=== PATIENT | male | born 1985 | race Caucasian/White ===

== ENCOUNTER 2019-01-18 11:13 | Outpatient (CLI) | payer MEDICAID ==
[2019-01-18 11:31] LABS: BASOPHILS # (AUTO) 0.2 10^3/uL (0.0-0.1); BASOPHILS % (AUTO) 1.7 %; EOSINOPHILS # (AUTO) 0.7 10^3/uL (0.0-0.7); EOSINOPHILS % (AUTO) 6.6 %; HGB - HEMOGLOBIN 14.6 g/dL (14.0-18.0); LYMPHOCYTES # (AUTO) 3.2 10^3/uL (1.5-3.5); LYMPHOCYTES % (AUTO) 30.5 %; MEAN CORPUSCULAR HEMOGLOBIN 30.7 pg (27.0-31.0); MEAN CORPUSCULAR HGB CONC 33.9 g/dL (32.0-36.0); MEAN CORPUSCULAR VOLUME 90.6 fL (80.0-94.0); MEAN PLATELET VOLUME 7.8 fL (7.4-11.4); MONOCYTES # (AUTO) 0.7 10^3/uL (0.0-1.0); NEUTROPHILS # (AUTO) 5.7 10^3/uL (1.5-6.6); NEUTROPHILS % (AUTO) 54.2 %; PLT - PLATELET COUNT 264 10^3/uL (130-450); RED BLOOD COUNT 4.76 10^6/uL (4.70-6.10); RED CELL DISTRIBUTION WIDTH 13.8 % (12.0-15.0); WHITE BLOOD COUNT 10.4 x10^3/uL (4.8-10.8)
[2019-01-18 11:39] LABS: ALBUMIN 4.3 g/dL (3.2-5.5); ALBUMIN/GLOBULIN RATIO 1.3 (1.0-2.2); BILIRUBIN,TOTAL 0.6 mg/dL (0.2-1.0); CALCIUM 9.2 mg/dL (8.5-10.3); TOTAL PROTEIN 7.6 g/dL (6.7-8.2)
== END 2019-01-18 11:14 | disposition home or self-care (01) ==
LOC: LAB 11:13
PROVIDERS: ATTEND Internal Medicine Gastroenterology
DX: K92.1 Melena (principal); R19.7 Diarrhea, unspecified; R10.13 Epigastric pain; K21.9 Gastro-esophageal reflux disease without esophagitis
CPT/HCPCS: 36415; 80053; 85025

== ENCOUNTER 2019-01-27 17:14 | Outpatient (CLI) | payer MEDICAID ==
--- NOTE | 2019-01-28 14:12 | Ultrasound Report ---
Reason: DIARRHEA,BLOODY,ABDOMINAL PAIN,EPIGASTRIC,GERD Procedure Date: 01/27/2019 Accession Number: [id number] / [id number] Procedure: US - Abdomen Limited CPT Code: FULL RESULT: EXAM: ABDOMEN ULTRASOUND LIMITED, RUQ EXAM DATE: 01/27/2019 05:44 PM. CLINICAL HISTORY: Diarrhea, bloody, abdominal pain, epigastric, GERD. COMPARISON: None. TECHNIQUE: Real-time scanning was performed with static images obtained. FINDINGS: Liver: Normal in size and echotexture. 18.2 cm. Main portal vein flow: Hepatopetal. Gallbladder: Contracted gallbladder noted. No stones, wall thickening, or sonographic Rivera's sign. Biliary System: CBD measures 3 mm. No intrahepatic or extrahepatic biliary dilation. Right kidney: 9.6 cm. No hydronephrosis. Other: Study mildly limited due to bowel gas. IMPRESSION: 1. Contracted gallbladder without sonographic findings concerning for acute cholecystitis or cholelithiasis. 2. Normal common bile duct. 3. No liver mass or intrahepatic bile duct dilation. RADIA
== END 2019-01-27 17:15 | disposition home or self-care (01) ==
LOC: DI 17:14
PROVIDERS: ATTEND Internal Medicine Gastroenterology
DX: R19.7 Diarrhea, unspecified (principal); R10.13 Epigastric pain; K21.9 Gastro-esophageal reflux disease without esophagitis
CPT/HCPCS: 76705

== ENCOUNTER 2019-03-02 07:27 | Day surgery (SDC) | payer MEDICAID ==
[2019-03-02] MEDS ORDERED: LACTATED RINGERS 1,000 ML IV ONE ×2 (07:31→09:21)
[2019-03-02] MEDS ORDERED: LIDO GARGLE 30 ML BOTTLE ONE (08:02)
[2019-03-02] MEDS ORDERED: MIDAZOLAM 2 MG/2 ML VIAL IVP ONE (09:03)
[2019-03-02] MEDS ORDERED: fentaNYL 100 MCG/2 ML VIAL IVP ONE (09:03)
[2019-03-02] MEDS ORDERED: fentaNYL 250 MCG/5 ML VIAL IVP ONE (09:03)
[2019-03-02] MEDS ORDERED: LIDO GARGLE 30 ML BOTTLE PO ONE (09:07)
[2019-03-02 10:29] VITALS: BP 104/65
--- NOTE | 2019-03-07 08:28 | HISTORY & PHYSICAL EXAMINATION ---
Chief Complaint - Chief Complaint Chief Complaint: Late entry for 03/02/19: abd pain, bloody diarrhea Abdominal Pain HPI - Admitted From Admitted from: Other (outpatient) - History Obtained From History obtained from: Patient Exam limitations: No limitations - History of Present Illness Severity at the worst: Moderate Context-Pain started w/: Other (unrelated) Timing: Intermittent Duration: Hours: (1-2) Improved with: Nothing Worsened by: Nothing Associated symptoms: Nausea (also c/o bleeding from hemorrhoids and intermittent bloody diarrhea for several months; c/o frequent heartburn but no dysphagia) PMH/PSH - Past Medical History Cardiovascular: positive: None Respiratory: positive: Sleep apnea Endocrine/Autoimmune: positive: None GI: positive: GERD : positive: None HEENT: positive: None Psych: positive: Depression Musculoskeletal: positive: None Derm: positive: None MRSA Hx?: No Social & Family Hx - Living Situation Living Arrangement: At home Living Situation: With family - Social History Does the pt smoke?: Yes Smoking Status: Current every day smoker Does the pt drink ETOH?: No Does the pt have substance abuse?: No Substance Use and Type: Marijuana - Family History Family History Comment/Other: great uncle with colon cancer Meds/Allgy - Home Medications Home Medications: Ambulatory Orders Medication Instructions Recorded Confirmed No Known Home Medications 03/01/19 03/01/19 - Allergies Allergies/Adverse Reactions: Allergies Allergy/AdvReac Type Severity Reaction Status Date / Time No Known Drug Allergies Allergy Verified 03/01/19 14:30 Review of Systems - Constitutional Constitutional: denies: Weight gain, Weight loss - Gastrointestinal Gastrointestinal: reports: Abdominal pain, Diarrhea, Change in bowel habits, Rectal bleeding, Bloody stools, Nausea, Reflux/heartburn. denies: Vomiting - Psychiatric Psychiatric: reports: Depression - All Other Systems All Other Systems: reports: Reviewed and negative Exam - Vital Signs Reviewed Vital Signs: Yes - Physical Exam General Appearance: positive: Anxious Eyes Bilateral: positive: Normal inspection ENT: positive: ENT inspection nml Neck: positive: Nml inspection Respiratory: positive: Chest non-tender, No respiratory distress, Breath sounds nml Cardiovascular: positive: Regular rate & rhythm, No murmur, No gallop Abdomen: positive: Non-tender, No organomegaly. negative: Mass Skin: positive: Color nml, No rash, Warm, Diaphoresis Extremities: positive: Full ROM, Nml appearance, No pedal edema. negative: Calf tenderness Neurologic/Psychiatric: positive: Oriented x3 Impression/Plan - Problem List Problem List: 1. Epigastric pain; Plan: EGD for further evaluation. PAR conference in office and consent obtained. 2. Bloody diarrhea: Plan: Colonoscopy for further evaluation. Par conference in office and consent obtained.
== END 2019-03-02 07:28 | disposition home or self-care (01) ==
LOC: SDS 07:27
PROVIDERS: ATTEND Internal Medicine Gastroenterology
PROC: 0DB78ZX Excision of Stomach, Pylorus, Via Natural or Artificial Opening Endoscopic, Diagnostic (ICD-10-PCS; 2019-03-02)
PROC: 0DB38ZX Excision of Lower Esophagus, Via Natural or Artificial Opening Endoscopic, Diagnostic (ICD-10-PCS; 2019-03-02)
PROC: 0DBE8ZX Excision of Large Intestine, Via Natural or Artificial Opening Endoscopic, Diagnostic (ICD-10-PCS; principal; 2019-03-02 08:30)
PROC: 0DB98ZX Excision of Duodenum, Via Natural or Artificial Opening Endoscopic, Diagnostic (ICD-10-PCS; 2019-03-02 08:30)
DX: K29.70 Gastritis, unspecified, without bleeding (principal); K21.9 Gastro-esophageal reflux disease without esophagitis; K44.9 Diaphragmatic hernia without obstruction or gangrene; K64.4 Residual hemorrhoidal skin tags; K64.8 Other hemorrhoids; G47.30 Sleep apnea, unspecified; F32.9 Major depressive disorder, single episode, unspecified; F17.200 Nicotine dependence, unspecified, uncomplicated; Z72.89 Other problems related to lifestyle; Z80.0 Family history of malignant neoplasm of digestive organs
CPT/HCPCS: 43239; 45380; A9270; J3010; J7120

== ENCOUNTER 2019-03-20 15:20 | Outpatient (CLI) | payer MEDICAID | END 2019-03-20 15:21 | disposition home or self-care (01) | LOC: SC 15:20 | PROVIDERS: ATTEND Internal Medicine Pulmonary Disease | DX: G47.10 Hypersomnia, unspecified (principal); R06.81 Apnea, not elsewhere classified; R41.89 Other symptoms and signs involving cognitive functions and awareness; R06.83 Snoring; G47.8 Other sleep disorders | CPT/HCPCS: 99203; 99212 ==

== ENCOUNTER 2019-03-29 19:30 | Outpatient (CLI) | payer MEDICAID | END 2019-03-29 23:59 | disposition home or self-care (01) | LOC: SC 19:30 | PROVIDERS: ATTEND Internal Medicine Pulmonary Disease | DX: G47.33 Obstructive sleep apnea (adult) (pediatric) (principal) | CPT/HCPCS: 95806 ==

== ENCOUNTER 2019-06-06 16:30 | Outpatient (CLI) | payer MEDICAID | END 2019-06-06 16:31 | disposition home or self-care (01) | LOC: SC 16:30 | PROVIDERS: ATTEND Nurse Practitioner Family | DX: G47.33 Obstructive sleep apnea (adult) (pediatric) (principal) | CPT/HCPCS: 99212; 99214 ==